=== PATIENT | male | born 1975 | race African-American/Black ===

== ENCOUNTER 2020-06-08 06:10 | Day surgery (SDC) | payer SELFPAY ==
[2020-06-08] MEDS ORDERED: Midazolam HCl 2 mg/2 ml Vial ONE (07:53)
[2020-06-08] MEDS ORDERED: Fentanyl 100 MCG/2 ML VIAL ONE ×2 (07:53→09:18)
[2020-06-08] MEDS ORDERED: PROPOFOL 200 MG/20 ML VIAL ONE (10:22)
[2020-06-08] MEDS ORDERED: Ketorolac Tromethamine 30 MG/ML VIAL ONE (10:22)
[2020-06-08] MEDS ORDERED: Bupivacaine HCl 0.5%/Epinephrine 1:200,000/PF 30 ml Vial ONE (10:22)
[2020-06-08] MEDS ORDERED: Ondansetron PF 4 MG/2 ML Vial ONE (10:22)
[2020-06-08] MEDS ORDERED: Lidocaine 1% PF 5 ML VIAL ONE (10:22)
[2020-06-08] MEDS ORDERED: Dexamethasone 20 MG/5 ML VIAL ONE (10:22)
--- NOTE | 2020-06-08 11:24 | OP ---
DATE OF PROCEDURE: 06/08/2020 PREOPERATIVE DIAGNOSIS: Left distal radius fracture (2 fragments). POSTOPERATIVE DIAGNOSIS: Left distal radius fracture (2 fragments). PROCEDURE PERFORMED: Open reduction and internal fixation of left distal radius. ANESTHESIA: General. INSTRUCTOR OF EDUCATION: Lawrence. TOURNIQUET TIME: 45 minutes at 250 mmHg. IMPLANTS: Synthes 2.4 mm variable angle LCP 2-column plate. COMPLICATIONS: None. DRAINS: None. SPECIMEN: None. OUTCOME: Satisfactory. INDICATIONS FOR PROCEDURE: The patient is a 44-year-old gentleman, status post fall on outstretched left hand, sustaining a displaced distal radius fracture with mild dorsal comminution. After discussion with the patient including risks and benefits, we decided to proceed with open reduction and internal fixation. Informed consent has been obtained. All questions answered. DESCRIPTION OF PROCEDURE: The patient was brought to the operating room. Time-out performed followed by induction of general anesthesia. Next, a sterile prep and drape was performed of the left upper extremity. Next, an incision was made overlying the flexor carpi radialis. After skin was sharply incised, dissection was carried down bluntly to the radial border of the flexor carpi radialis. The fascia of the flexor digitorum was incised and then, the muscle belly reflected to the midline while the neurovascular bundle was reflected radially and protected by my sales assistant entertainment and media who provided retraction. Next, the pronator quadratus was released sharply off the radial border of the distal radius and reflected to the midline, revealing the underlying fracture and the volar cortex of the distal radius. The fracture was then reduced under direct visualization and held in place with a bone tenaculum with AP and lateral C-arm images obtained to confirm appropriate reduction. While my sales assistant entertainment and media maintained reduction, a volar plate was applied and held in place with a 2.7-mm cortical screw in the longitudinal limb of the plate proximal to the fracture. Next, again AP and lateral C-arm images were checked and then distal screws applied. A total of four 2.4-mm locking screws were placed in the horizontal limb of the plate just below the articular surface of the distal radius. This was then followed by insertion of two more 2.7-mm screws in the longitudinal limb, although my sales assistant entertainment and media continued to apply reduction of the fracture and a retractor protecting the radial neurovascular bundle. At the completion of hardware placement, AP and lateral C-arm images were obtained that showed acceptable alignment of the fracture. The wound was irrigated with bulb syringe and closed in layers with 0 Vicryl deep followed by 2-0 Vicryl and nylon for skin. Xeroform gauze, Webril, and fiberglass splint were applied to the wrist, and then the patient was transferred to recovery room in stable condition. It should be noted that the limb was exsanguinated with Esmarch bandage prior to the first incision and that the tourniquet was let down at the completion of dressing with total of 45 minutes. There were no complications. The patient tolerated the procedure well. Job ID: [id number]
--- NOTE | 2020-06-12 13:07 | RAD ---
2 intraoperative images of the left wrist: 06/08/2020 COMPARISON: 06/05/2020 HISTORY: ORIF FINDINGS: There is a volar screw and plate fixation device treating a previously noted fracture of th e distal radius. The distal ulnar fracture seen on prior imaging are not fully visualized on this exam. IMPRESSION: ORIF as above.
== END 2020-06-08 12:55 | disposition home or self-care (01) ==
LOC: SDC 06:10
PROVIDERS: ATTEND Orthopaedic Surgery
PROC: 0PSJ04Z Reposition Left Radius with Internal Fixation Device, Open Approach (ICD-10-PCS; principal; 2020-06-08)
DX: S52.532A Colles' fracture of left radius, initial encounter for closed fracture (principal); F17.200 Nicotine dependence, unspecified, uncomplicated; W19.XXXA Unspecified fall, initial encounter; Y93.61 Activity, american tackle football
CPT/HCPCS: 76000; C1713; J0690; J1100; J1885; J2250; J2405; J2704; J3010